=== PATIENT | male | born 1975 | race Caucasian/White ===

== ENCOUNTER 2020-01-13 15:35 | Emergency (ER) | payer BC ==
--- OUTSIDE RECORDS SUMMARY | 2020-01-13 15:40 | XMS REPORT | Continuity of Care Document ---
:1975 External Reference #:[id number] Author Name Thierno Rizvi M.D. (transmitted by agent of provider Christopher Echavarria) Address [address] [place] [id number] Care Team Providers Name Role Phone [facility] Care Team Information Rn Liaison [phone] Mario Barksdale M.D. Care Team Information Rn Liaison [phone] Problems Active Problems Provider Date Toxic effect of venom of bees, accidental Thierno Rizvi M.D. Onset: 12/06/2019 (unintentional), subsequent encounter Allergy to other foods Thierno Rizvi M.D. Onset: 12/06/2019 Allergic rhinitis due to pollen Thierno Rizvi M.D. Onset: 12/06/2019 Social History Type Date Description Comments Sex Unknown ETOH Use Occasionally consumes alcohol Tobacco Use Start: Unknown Patient has never smoked Recreational Drug Use Never Used Drugs Allergies, Adverse Reactions, Alerts Description No Known Drug Allergies Medications Description No Active Medications Immunizations Description No Information Available Vital Signs Date Vital Result Comment 12/06/2019 10:59am Height 70 inches 5'10" Weight 224.00 lb Weight 101.606 kg Respiratory Rate 16 /min Heart Rate 80 /min O2 % BldC Oximetry 98 % BP Systolic 129 mmHg BP Diastolic 88 mmHg BMI (Body Mass Index) 32.1 kg/m2 Results Description No Information Available Procedures Date Code Description Status 12/06/2019 13653 Skin Test Scratch # Of Units ____ Completed Medical Devices Description No Information Available Encounters Description No Information Available Assessments Date Code Description Provider 12/06/2019 J30.1 Allergic rhinitis due to pollen Thierno Rizvi M.D. 12/06/2019 Z91.018 Allergy to other foods Thierno Rizvi M.D. 12/06/2019 T63.441D Toxic effect of venom of bees, accidental Thierno Rizvi M.D. (unintentional), subsequent encounter Plan of Treatment 12/06/2019 - Thierno Rizvi M.D.J30.1 Allergic rhinitis due to pollenNew Labs: Rast Lobster F80, Ordered: 12/06/19Rast Scallop F338, Ordered: 12/06/19Rast Mussel Blue F37, Ordered: 12/06/19Rast Oyster F290, Ordered: 12/06/19Rast Clam F207, Ordered: 12/06/19Rast Mushroom RF212, Ordered: 12/06/19Rast Ige Honey Bee i1, Ordered: 12/06/19Rast Ige WF Hornet i2, Ordered: 12/06/19Rast Ige YLw JKT/ Comm Wasp I3, Ordered: 12/06/19Rast Ige Paper Wasp I4, Ordered: 12/06/19Rast Ige Gove Hornet i5, Ordered: 12/06/19Tryptase, Serum, Ordered: 12/06/19Rast Shrimp F24, Ordered: 12/06/19Follow up:6 weeks discussion sooner if neededRecommendations:skin testing strongly positive for dust mite,different pollens,cat to lesser extent to dog and some mold results discussed with him options of Immunotherapy Nasacort 1 squirt once a day avoid the jbkwaeplelqxsH25.018 Allergy to other foodsRecommendations:serum IgE for food if needed will do the skin uuzvquyL59.441D Toxic effect of venom of bees, accidental, subsRecommendations:serum IgE for venom if needed than will do the skin testing Immunotherapy based on the positivity of testingAllNew Medication: No Active Medications - Functional Status Description No Information Available Mental Status Description No Information Available Referrals Description No Information Available
--- OUTSIDE RECORDS SUMMARY | 2020-01-13 15:40 | XMS REPORT | Summary of Care ---
:1975 Author Organization [facility] Address [address] [facility] [place] [id number] Care Team Providers Name Role Phone Apolonia Mario Primary Care Provider Reason for Visit Reason Comments Allergic Reaction to mushroom or scallops, right eye swelling, had this happen with lobster in the past, would like epi pen Encounter Details Date Type Department Care Team Description 12/02/2019 Office Visit [place] Yvette Asencio, Allergic reaction to food, initial encounter (Primary Dx); Practice [employer] Bee sting allergy [address] [place], [place] [id number] [place] [address] [phone] Allergies No Known Allergiesdocumented as of this encounter (statuses as of 12/02/2019) Medications Medication Sig Dispensed Refills Start Date End Date Status Loratadine-Pseudoeph Take by mouth. 0 Active edrine (CLARITIN-D 24 HOUR PO) Multiple Take 1 Tab by mouth. 0 Active Vitamins-Minerals (EMERGEN-C IMMUNE PO) Aspirin 81 MG Oral Take 1 Tab by mouth 30 Tab 0 05/16/2017 Active TabIndications: DAILY. Amaurosis fugax of right eye Tadalafil (CIALIS) Take 1 Tab by mouth 6 Tab 1 06/04/2018 Active 10 MG Oral Tab DIRECTED. Prior to intercourse Omeprazole 40 MG Take 1 Cap by mouth 2 11/08/2018 Active Oral CAPSULE DELAYED DAILY. RELEASE LORazepam (ATIVAN) 1 Take 1 Tab by mouth 20 Tab 0 06/10/2019 Active MG Oral Tab DAILY NEEDED (flying- take 1.5-2 tabs PRN). Max Daily Amount: 1 mg. amLODIPine Take 1 Tab by mouth 90 Tab 1 06/10/2019 Active Besylate-Valsartan DAILY. Vacation 5-160 MG Oral Tab override . [place] of [place]12 to 07[place]28[place] Tadalafil (CIALIS) Take 1 Tab by mouth 36 Tab 0 06/10/2019 Active 10 MG Oral Tab DAILY NEEDED (ED). EPINEPHrine (EPIPEN 1 Device by 1 Each 2 12/02/2019 Active 2-TONEY) 0.3 MG/0.3ML Injection route Injection Solution NEEDED (allergic Auto-injectorIndicat reaction). 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 Set realistic goal of 1# wt reduction /week set 10 week goals. documented as of this encounter (statuses as of 12/02/2019) Resolved Problems Problem Noted Date Resolved Date Tear of medial meniscus of left knee 01/04/2016 06/04/2018 Rupture of anterior cruciate ligament of left knee 12/22/2015 06/04/2018 documented as of this encounter (statuses as of 12/02/2019) Immunizations Name Administration Dates Next Due Hepatitis A Vaccine-Adult 05/05/2011 Hepatitis B Vaccine 05/20/1997, 03/12/1997, 08/13/1996 MMR VACCINE 12/01/1994, 07/04/1977 Polio - Inactivated Vaccine 10/15/1977, [birth year] TDAP Vaccine 05/05/2011 TETANUS & DIPHTHERIA TOXOID (OVER 7 YRS) 01/18/2001 YELLOW FEVER VACCINE 05/11/2011 documented as of this encounter Social History Tobacco Use Types Packs/Day Years Used Date Never Smoker Smokeless Tobacco: Never Used Alcohol Use Drinks/Week oz/Week Comments Yes occ Sex Assigned at Date Recorded Not on file documented as of this encounter Last Filed Vital Signs Vital Sign Reading Time Taken Comments Blood Pressure 138/68 12/02/2019 1:58 PM EDT Pulse 96 12/02/2019 1:58 PM EDT Temperature - - Respiratory Rate - - Oxygen Saturation 97% 12/02/2019 1:58 PM EDT Inhaled Oxygen Concentration - - Weight 104.3 kg (230 lb) 12/02/2019 1:58 PM EDT Height 175.3 cm (5' 9") 12/02/2019 1:58 PM EDT Body Mass Index 33.97 12/02/2019 1:58 PM EDT documented in this encounter Patient Instructions Patient InstructionsYvette Jacques FNP - 12/02/2019 2:00 PM EDTSchedule appointment with sales team leader Sesar almaraz ordered Use Zyrtec daily for a week WITH Pepcid AC twice a day for a week if allergic reaction documented in this encounter Progress Notes Yvette Jacques FNP - 12/02/2019 2:00 PM EDT PATIENT: Jose L Kelley : 1975 DATE OF SERVICE: 12/02/2019 CHIEF COMPLAINT: Chief Complaint Patient presents with ? Allergic Reaction to mushroom or scallops, right eye swelling, had this happen with lobster in the past, would like epi pen Subjective HISTORY OF PRESENT ILLNESS: Jose L Kelley is a 44-y.o. male. HPI Had allergic reaction to food - ate scallops prior - face swelled up - sx resolved with daily use ofBenadryl. Similar reaction a few years ago with lobster. Wants to have allergy testing and needs Epipen Past Medical History: Diagnosis Date ? Bone tumor ? Environmental allergies seasonal January -summer . Claritin D . shots not help ? Factor 5 Leiden mutation, heterozygous (HCC) ? Hypertension ? Thalassemia Family History Problem Relation Age of Onset ? Cancer Father lung CA -non-smoker. ? Hypertension Father ? Anesth Problems No family history ? Arthritis No family history ? Clotting Disorder No family history ? Diabetes No family history ? Heart Disease No family history ? Kidney Disease No family history ? Thyroid Disease No family history Current Outpatient Medications Medication Sig ? amLODIPine Besylate-Valsartan 5-160 MG Oral Tab Take 1 Tab by mouth DAILY. Vacation override. Out of country 06/12 to 07/28/19 ? Aspirin 81 MG Oral Tab Take 1 Tab by mouth DAILY. ? EPINEPHrine (EPIPEN 2-TONEY) 0.3 MG/0.3ML Injection Solution Auto- injector 1 Device by Injection route NEEDED (allergic reaction). ? Loratadine-Pseudoephedrine (CLARITIN-D 24 HOUR PO) Take by mouth. ? LORazepam (ATIVAN) 1 MG Oral Tab Take 1 Tab by mouth DAILY NEEDED ( flying- take 1.5-2 tabs PRN). Max Daily Amount: 1 mg. ? Multiple Vitamins-Minerals (EMERGEN-C IMMUNE PO) Take 1 Tab by mouth. ? Omeprazole 40 MG Oral CAPSULE DELAYED RELEASE Take 1 Cap by mouth DAILY. ? Tadalafil (CIALIS) 10 MG Oral Tab Take 1 Tab by mouth DIRECTED. Prior to intercourse ? Tadalafil (CIALIS) 10 MG Oral Tab Take 1 Tab by mouth DAILY NEEDED ( ED). No current facility-administered medications for this visit. No Known Allergies Social History Socioeconomic History ? Marital status: Single Spouse name: Not on file ? Number of children: Not on file ? Years of education: Not on file ? Highest education level: Not on file Occupational History ? Not on file Social Needs ? Financial resource strain: Not on file ? Food insecurity Worry: Not on file Inability: Not on file ? Transportation needs Medical: Not on file Non-medical: Not on file Tobacco Use ? Smoking status: Never Smoker ? Smokeless tobacco: Never Used Substance and Sexual Activity ? Alcohol use: Yes Comment: occ ? Drug use: No ? Sexual activity: Yes Partners: Female Lifestyle ? Physical activity Days per week: Not on file Minutes per session: Not on file ? Stress: Not on file Relationships ? Social connections Talks on phone: Not on file Gets together: Not on file Attends mormon service: Not on file Active member of club or organization: Not on file Attends meetings of clubs or organizations: Not on file Relationship status: Not on file ? Intimate partner violence Fear of current or ex partner: Not on file Emotionally abused: Not on file Physically abused: Not on file Forced sexual activity: Not on file Other Topics Concern ? Back Care Not Asked ? Bike Helmet Not Asked ? Blood Transfusions No ? Caffeine Concern Not Asked ? Exercise Not Asked Comment: gym 2x/week ? Hobby Hazards Not Asked ? International Travel Not Asked ? Service Not Asked ? Occupational Exposure Not Asked ? Seat Belt Not Asked ? Self-Exams Not Asked ? Sleep Concern Not Asked ? Special Diet Not Asked ? Stress Concern Not Asked ? 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 Over the last 2 weeks, have you been feeling down, depressed, anxious, or hopeless?: 0 Over the past 2 weeks, have you felt little interest or pleasure in doing things ?: 0 REVIEW OF SYSTEMS: Review of Systems Constitutional: Negative for chills, fever and malaise/fatigue. HENT: Negative for congestion. Respiratory: Negative for shortness of breath. Cardiovascular: Negative for chest pain and palpitations. Musculoskeletal: Negative for myalgias. Objective PHYSICAL EXAM: VITALS: BP 138/68 | Pulse 96 | Ht 5' 9" (1.753 m) | Wt 230 lb (104.3 kg) | SpO2 97% | BMI 33.97 kg/m Body mass index is 33.97 kg/m. Physical Exam Vitals signs and nursing note reviewed. Constitutional: Appearance: Normal appearance. HENT: Head: Normocephalic and atraumatic. Nose: No rhinorrhea. Eyes: Extraocular Movements: Extraocular movements intact. Conjunctiva/sclera: Conjunctivae normal. Pupils: Pupils are equal, round, and reactive to light. Neck: Musculoskeletal: Normal range of motion. Pulmonary: Effort: Pulmonary effort is normal. Skin: General: Skin is warm and dry. Capillary Refill: Capillary refill takes less than 2 seconds. Coloration: Skin is not cyanotic. Neurological: Mental Status: He is alert and oriented to person, place, and time. ASSESSMENT / IMPRESSION: ICD-9-CM ICD-10-CM 1. Allergic reaction to food, initial encounter V15.05 T78.1XXA EPINEPHrine ( EPIPEN 2-TONEY) 0.3 MG/0.3ML Injection Solution Auto-injector 2. Bee sting allergy V15.06 Z91.030 EPINEPHrine (EPIPEN 2-TONEY) 0.3 MG/0.3ML Injection Solution Auto-injector Plan Schedule appointment with sales team leader Sesar pen ordered Use [facility] daily for a week WITH Pepcid AC twice a day for a week if allergic reaction Author: CLIFTON Sharma 12/02/2019 14:47 documented in this encounter Plan of Treatment Health Maintenance Due Date Last Done Comments LIPID DISORDER SCREENING 06/04/2019 06/04/2018, 05/16/2017, 04/27/2015, Additional history exists DIABETES SCREENING 06/10/2020 06/10/2019, 06/04/2018, 05/16/2017, Additional history exists DEPRESSION SCREENING 12/01/2020 12/02/2019 DTaP/Tdap/Td Vaccines (3 - 05/05/2021 05/05/2011, 01/18/2001 Tdap) HEPATITIS A IMMUNIZATION Aged Out 05/05/2011 No longer eligible SERIES based on patient's age to complete this topic HPV IMMUNIZATION SERIES Aged Out No longer eligible based on patient's age to complete this topic MENINGOCOCCAL VACCINE IMM Aged Out No longer eligible based on patient's age to complete this topic PNEUMOCOCCAL 0-64 YRS Aged Out No longer eligible based on patient's age to complete this topic documented as of this encounter Goals Goal Patient Goal Associated Recent Patient-Stated? Author Type Problems Progress Blood Pressure Blood Pressure 138/68 No Apolonia, < 140/90 (12/02/2019 MD Mario 1:58 PM EDT) Note: This is an individualized treatment (blood pressure) goal for Jose L B Souzas : Displayed above (on the left) is your goal for blood pressure control. Your most recent blood pressure is also shown above, on the right. You should try to achieve blood pressures that are lower than your goal listed above (on the left). Weight loss vs. 18 mo max Lifestyle 0 (12/02/2019 1:58 PM EDT) No Mario Barksdale MD (lbs) >= 10 Note: This is an individualized lifestyle goal for Jose L B Souzas: Your body mass index (BMI) is more than 30. You should lose weight. A reasonable starting goal is to lose 10 pounds. Displayed above is how many pounds you have lost thus far towards your 10 pound weight loss goal. Take all prescribed medications as directed Self-management No Mario Barksdale MD Note: This is an individualized self-management goal for Jose L Kelley: Please take all prescribed medications as directed. 1. Do not skip doses. If you cannot afford your medications, talk with your doctor. 2. Use a pill reminder system such as a pill box if needed. Your pharmacist can help you with this. 3. Contact your Pharmacy 5 days before your medication runs out. If you cannot take your medications for any reasons, talk with your doctor. 4. Please bring all of your medication bottles and inhalers (or a list of all your medications/inhalers) with you to every visit. Potential barriers to meeting all of your care plan goals will continue to be addressed on an ongoing basis. documented as of this encounter Implants Implanted Type Area Foot Gatherer Device Shelf Model / Identifier Expiration Serial / Lot Date Matryx Interference Screw 9.0mm X 20mm - [id number] Left: [employer] 2020 [id number] / Implanted: Qty: 1 on 07/27/2016 by Mario Michele MD at [facility] Knee / [id number] Description:genesys matryx 9.0 x 20mm Screw, 218.040 Canc 6.5x40 Ft - [id number] Left: Knee [email or web address] ([place]) 218.040 / Implanted: Qty: 1 on 07/27/2016 by Mario Michele MD at [facility] 218.040 / [id number] Description:40mm fully threaded synthes screw Washer, 219.99 Large 13mm - [id number] Left: Knee [email or web address] ([place]) 219.99 / Implanted: Qty: 1 on 07/27/2016 by Mario Michele MD at [facility] / [id number] documented as of this encounter Results Not on filedocumented in this encounter Visit Diagnoses Diagnosis Allergic reaction to food, initial encounter Bee sting allergy Allergy to insects and arachnids documented in this encounter Insurance Payer Benefit Plan / Subscriber ID Effective Dates Phone Address Type Group SRIDHAR BAILEY [id number] 2015-Present [employer] Guarantor Name Account Type Relation to Date of Phone Billing Patient Address Jose L Kelley Personal/Family 1975 [address] (Home) [place], [place] [phone] [id number] (Work) documented as of this encounter
[2020-01-13 15:46] VITALS: BP 148/94
[2020-01-13] MEDS ORDERED: Lidocaine 1% MPF ** 5 ML VIAL INJ ONE (15:55)
[2020-01-13] MEDS ORDERED: Tetan/Diph/Pertus SYR(Tdap)* 0.5 ML SYR(BOOSTRIX) use SYR contains LATEX IM ONE (16:45)
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
== END 2020-01-13 16:59 | disposition home or self-care (01) ==
LOC: UCCORT 15:35
DX: S01.81XA Laceration without foreign body of other part of head, initial encounter (principal); W22.8XXA Striking against or struck by other objects, initial encounter; Y93.89 Activity, other specified; Y92.9 Unspecified place or not applicable; Z23 Encounter for immunization; I10 Essential (primary) hypertension; Z79.899 Other long term (current) drug therapy
CPT/HCPCS: 12013; 90715; 99211; G0463

== ENCOUNTER 2020-01-18 13:17 | Emergency (ER) | payer BC ==
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
[2020-01-18 13:27] VITALS: BP 137/83
== END 2020-01-18 13:40 | disposition home or self-care (01) ==
LOC: UCCORT 13:17
DX: S01.111D Laceration without foreign body of right eyelid and periocular area, subsequent encounter (principal); W22.8XXD Striking against or struck by other objects, subsequent encounter; I10 Essential (primary) hypertension; Z79.899 Other long term (current) drug therapy